=== PATIENT | male | born 1985 | race Caucasian/White ===

== ENCOUNTER 2023-07-17 18:12 | Emergency (ER) | payer MEDICAID ==
[~2023-07-17] VITALS: Ht 167.6 cm; Wt 90.7 kg
[~2023-07-17 18:12] MED LIST: KLO.5 PO
[2023-07-17 18:30] VITALS: BP_SYST 126; PULSE 83; RESP 19; TEMP 96.8; O2SAT 97
[2023-07-17 21:23] LABS: INFLUENZA TYPE A Negative (NEGATIVE); INFLUENZA TYPE B NEGATIVE (NEGATIVE)
[2023-07-17 23:49] VITALS: BP_SYST 126; PULSE 83; RESP 19; TEMP 96.8; O2SAT 97
== END 2023-07-17 23:49 | disposition home or self-care (01) ==
LOC: SED 18:12
DX: J06.9 Acute upper respiratory infection, unspecified (principal); Z20.822 Contact with and (suspected) exposure to COVID-19; Z88.0 Allergy status to penicillin; Z79.899 Other long term (current) drug therapy
CPT/HCPCS: 36415; 99283